=== PATIENT | male | born 1950 ===

== ENCOUNTER → 2022-11-23 12:47 | Outpatient (REF) | payer MEDICARE, SELFPAY | LOC: HO.CARD 12:47 | PROVIDERS: Visit Provider Nurse Practitioner Family | DX: Z13.89 Encounter for screening for other disorder (principal) | CPT/HCPCS: Q9957 ==

== ENCOUNTER 2022-11-23 13:36 | Emergency (ER) | payer MEDICARE, SELFPAY ==
[2022-11-23] VITALS (7 sets, daily range): BP systolic 136–148; BP diastolic 77–89; PULSE 65–77; RESP 12–18; TEMP 36.1–36.6; O2SAT 96–99; BMI 34.5
--- NOTE | 2022-11-23 13:42 | ED_ITS ---
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 Patient reports intermittent palpitations for months and was preparing for a cardiac stress test at [facility] today when he went into [facility] prior to starting the test. Cardiology then transferred him to the ED. Denies any specific triggers. Upon arrival to the ED, patient is in normal sinus rhythm. Denies chest pain, shortness of breath, nausea, vomiting,or diaphoresis. No k nown history of CAD. MD complaint: palpitations Duration: intermittent Related Data Allergies Allergy/AdvReac Type Severity Reaction Status Date / Time amoxicillin Allergy Itching Verified 11/23/22 13:42 Review of Systems Review of Systems: Yes all other systems are reviewed and are negative PMFSH Past Medical History Attestation statement: The following information was validated with the patient. Social History Social History Alcohol intake: current Alcohol intake frequency: holidays/special occasions only Smoked in Last 30 Days: No Use of substances other than those prescribed or required for medical reasons: No Advance Directives: No Advance Directives Information Provided: No Physical Exam Vital Signs: Vital Signs: Last Vital Signs Temp 98 F 11/23/22 13:42 Pulse 68 11/23/22 14:13 Resp 18 11/23/22 14:13 BP 137/89 11/23/22 14:13 Pulse Ox 98 11/23/22 14:13 O2 Del Method Room Air 11/23/22 14:13 BMI result Body Mass Index 34.5 Const: General: healthy appearing Nutritional Appearance: average body habitus Orientation/consciousness: oriented to person and patient oriented x3 Limitations: no limitations HEENT: Head: Yes normal to inspection Ears: external ears normal General nose exam: Normal external nose present Mouth: Normal oral and palatal mucosa present and oropharynx normal Throat: Yes posterior oropharynx normal Eyes: General: appearance normal, both eyes and all related structures Neck: Other: supple Neck: Yes normal visual inspection Chest: Chest palpation & inspection: normal inspection of the chest Resp: Auscultation: clear to auscultation bilaterally Cardio: Jugular venous distension: no JVD Rate: regular rate Rhythm: regular rhythm Heart sounds: S1 normal heart sound present and S2 normal heart sound present GI: Inspection: Yes normal to inspection Palpation (GI): Soft to palpation, nontender and No hepatosplenomegaly present Auscultation: normal bowel sounds : General: Yes no CVA tenderness Back/Spine/Pelvis: Back: no CVA tenderness Skin: General skin exam: no rashes or lesions noted Neuro: General: oriented to person and patient oriented x3 Cranial nerves: Yes CN's II-XII intact bilaterally Motor exam (neuro): 5/5 motor strength present throughout Extrem: General: Yes normal to inspection Psych: Appearance: grossly normal Course Reevaluation(s) Reevaluation #1: Patient presents from the stress lab with intermittent episodes of vtach. Controlled now with IV amiodarone. To be transfered to [facility] for cardiac catheterization. Time: 14:44 Reevaluation #2: I spent 40 minutes of critical care, with interventions, assessments, speaking to patient, consultants, and family. Time: 14:45 Reevaluation #3: Patient to be admitted hospitalist, telemetry at [facility]. Awaiting a bed. Time: 15:50 Medications Administered Discontinued Medications Generic Name Dose Route Start Last Admin Trade Name Freq PRN Reason Stop Dose Admin Amiodarone HCl 150 mg in 100 mls @ 600 mls/hr 11/23/22 13:42 11/23/22 14:18 Nexterone IV 11/23/22 13:51 Infused ONCE ONE Infusion Medical Decision Making Differential Diagnosis Differential Diagnoses: The differential diagnosis associated with the presen tation includes (ventricular tachycardia, CAD, electrolyte abnormalities) Admission/Observation Consideration of admission/observation: Escalation of care including admission/observation considered (From arrival, 71 yo male with palpitations found to have vtach at the stress lab was immediately considered for admission) Consult Healthcare Provider Management of the patient was discussed with: 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 Significant for no electrolyte abnormality, normal troponin. 11/23/22 14:08 11/23/22 14:08 Labs: Lab Results 11/23/22 11/23/22 11/23/22 Range/Units 14:08 14:08 14:08 WBC 4.2 L (4.8-10.8) X10*3/uL RBC 4.06 L (4.60-5.80) X10*6/uL Hgb 13.7 L (14.0-18.0) g/dl Hct 39.4 L (42.0-52.0) % MCV 97.0 (80.0-98.0) fL MCH 33.7 H (27.0-33.0) pg MCHC 34.8 (31.0-36.0) g/dl RDW 12.2 (11.0-16.0) % Plt Count 162 (160-400) X10*3/uL MPV 10.0 (9.4-12.4) fL Immature Gran % (Auto) 0.2 (0.0-0.4) % Neut % (Auto) 43.1 L (45-73) % Lymph % (Auto) 42.2 H (20-40) % Mercer % (Auto) 9.9 (2-11) % Eos % (Auto) 3.9 (0-4) % Baso % (Auto) 0.7 (0-2) % Lymph # (Auto) 1.8 (1.2-4.9) X10*3/uL Mercer # (Auto) 0.4 (0.1-1.2) X10*3/uL Eos # (Auto) 0.2 (0.0-0.4) X10*3/uL Baso # (Auto) 0.0 (0.0-0.2) X10*3/uL Abs Immat Gran (auto) 0.01 (0.00-0.03) X10*3/uL Absolute Neuts (auto) 1.8 L (2.0-8.3) x10*3/uL Absolute Nucleated RBC 0.000 (0.0-0.012) X10*3/uL Nucleated RBC % (auto) 0.0 (0.0-0.2) /100WBC Sodium 136 (135-145) mmol/L Potassium 4.1 (3.3-5.1) mmol/L Chloride 105 (96-108) mmol/L Carbon Dioxide 24 (22-29) mmol/L Anion Gap 11 L (12-20) BUN 14 (9-16) mg/dL Creatinine 1.05 (0.5-1.4) mg/dL Estim Creat Clear Calc 75.0 Estimated GFR > 60 Random Glucose 110 (60-115) mg/dL Calcium 9.4 (8.4-10.2) mg/dL Troponin I High Sens 4.7 (<3.5-35.0) ng/L COVID-19 (GABO) (Negative) COVID-19 Clin Com 11/23/22 Range/Units 14:50 WBC (4.8-10.8) X10*3/uL RBC (4.60-5.80) X10*6/uL Hgb (14.0-18.0) g/dl Hct (42.0-52.0) % MCV (80.0-98.0) fL MCH (27.0-33.0) pg MCHC (31.0-36.0) g/dl RDW (11.0-16.0) % Plt Count (160-400) X10*3/uL MPV (9.4-12.4) fL Immature Gran % (Auto) (0.0-0.4) % Neut % (Auto) (45-73) % Lymph % (Auto) (20-40) % Mercer % (Auto) (2-11) % Eos % (Auto) (0-4) % Baso % (Auto) (0-2) % Lymph # (Auto) (1.2-4.9) X10*3/uL Mercer # (Auto) (0.1-1.2) X10*3/uL Eos # (Auto) (0.0-0.4) X10*3/uL Baso # (Auto) (0.0-0.2) X10*3/uL Abs Immat Gran (auto) (0.00-0.03) X10*3/uL Absolute Neuts (auto) (2.0-8.3) x10*3/uL Absolute Nucleated RBC (0.0-0.012) X10*3/uL Nucleated RBC % (auto) (0.0-0.2) /100WBC Sodium (135-145) mmol/L Potassium (3.3-5.1) mmol/L Chloride (96-108) mmol/L Carbon Dioxide (22-29) mmol/L Anion Gap (12-20) BUN (9-16) mg/dL Creatinine (0.5-1.4) mg/dL Estim Creat Clear Calc Estimated GFR Random Glucose (60-115) mg/dL Calcium (8.4-10.2) mg/dL Troponin I High Sens (<3.5-35.0) ng/L COVID-19 (GABO) Negative (Negative) COVID-19 Clin Com See Note Independent Interpretation I performed an independent interpretation of an: EKG (Normal sinus rhythm, rate of 70, no ST or T wave changes.) Discharge Plan Discharge Clinical Impression: Ventricular tachycardia Patient Disposition: [facility] Acute Care Hospital Transfer Details: [facility] cardiology
--- NOTE | 2022-11-23 13:42 | ECG_ITS ---
Test Reason : palpitations Blood Pressure : / mmHG Vent. Rate : 068 BPM Atrial Rate : 068 BPM P-R Int : 148 ms QRS Dur : 104 ms QT Int : 412 ms P-R-T Axes : 047 067 -06 degrees QTc Int : 438 ms Normal sinus rhythm Possible Inferior infarct , age undetermined Abnormal ECG No previous ECGs available Referred By: Felice Pavon Electronically Signed By:CASEY MONTANO
[2022-11-23] MEDS: Amiodarone/Dextrose 150 MG/100 ML PLAST..BAG 600 MG IV (13:53)
--- NOTE | 2022-11-23 14:11 | PC.NURSE ---
Patient arrived from OR after having episodes of vtach prior to start of stress test. Brought to ER for eval. On monitor multiple episodes of Vtach, patient stating he has been having these episodes for years and can usually feel when it is happening. VSS, denies chest pain, sob, or headache. 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
[2022-11-23 14:12] LABS: MANUAL DIFF FLAG NO
[2022-11-23 14:18] LABS: Basophils Percent Auto 0.7 % (0-2); Eosinophils Absolute Auto 0.2 X10*3/uL (0.0-0.4); Eosinophils Percent Auto 3.9 % (0-4); Hematocrit 39.4 % (42.0-52.0); Hemoglobin 13.7 g/dl (14.0-18.0); Imm Gran Abs Auto 0.01 X10*3/uL (0.00-0.03); Imm Gran Pct Auto 0.2 % (0.0-0.4); Lymphocytes Absolute Auto 1.8 X10*3/uL (1.2-4.9); Lymphocytes Percent Auto 42.2 % (20-40); Mean Corpuscular HGB Conc 34.8 g/dl (31.0-36.0); Mean Corpuscular Hemoglobin 33.7 pg (27.0-33.0); Monocytes Absolute Auto 0.4 X10*3/uL (0.1-1.2); Monocytes Percent Auto 9.9 % (2-11); Neutrophils Absolute Auto 1.8 x10*3/uL (2.0-8.3); Neutrophils Percent Auto 43.1 % (45-73); Platelet Count 162 X10*3/uL (160-400); Red Blood Count 4.06 X10*6/uL (4.60-5.80); Red Cell Distribution Width 12.2 % (11.0-16.0); White Blood Count 4.2 X10*3/uL (4.8-10.8)
--- NOTE | 2022-11-23 14:18 | PC.NURSE ---
Amiodarone running per order- no new episodes of vtach since amiodarone has been administered.
[2022-11-23 14:34] LABS: Anion Gap 11 (12-20); Blood Urea Nitrogen 14 mg/dL (9-16); Calcium 9.4 mg/dL (8.4-10.2); Carbon Dioxide 24 mmol/L (22-29); Chloride 105 mmol/L (96-108); Estimated Glomerular Filt Rate > 60; Glucose Random 110 mg/dL (60-115); Potassium 4.1 mmol/L (3.3-5.1); Sodium 136 mmol/L (135-145)
[2022-11-23 14:44] LABS: Troponin-I High Sensitivity 4.7 ng/L (<3.5-35.0)
[2022-11-23 15:06] LABS: COVID-19 Test Negative (Negative); IDNOW Serial# BCCEAD1C
--- NOTE | 2022-11-23 16:25 | PC.NURSE ---
Continues with multiple episodes of vtach, provider aware, awaiting bed assignment at [facility]
--- NOTE | 2022-11-23 18:27 | PC.NURSE ---
PO amiodarone ordered by provider. Provider asking for dose to be held at this time until provider is able to speak to cardiology at [facility].
[2022-11-23] MEDS: Amiodarone HCL 900 MG in 0.9 % Sodium Chloride 500 ML 34.53 MG IVCONT (19:03)
--- NOTE | 2022-11-23 19:23 | PC.NURSE ---
Assumed care for pt. Pt aox4. Breaths are even, regular and unlabored. Reports reports mild headache. Denies cp or palpitaions at this time. Multiple 20sec run of v-tach noted on the monitor with HR 146. Amiodarone drip ordered and started at 1mg/min. Pt tolerating well. No v-tach noted on the monitor after drip started. NSR on monitor with HR 70 bpm. Amiodarone PO held at this time per Dr. Underwood. Shock pads on pt. Pending awaiting transport to [facility]. Pt aware of plan of care.
[2022-11-23] MEDS: Acetaminophen 325 MG TABLET 650 MG PO (19:30)
[2022-11-23 19:38] LABS: Troponin-I High Sensitivity < 2.7 ng/L (<3.5-35.0)
--- NOTE | 2022-11-23 20:17 | MHC.EDTECH ---
This /[facility] called [facility] at 2016 for an update on a bed assignment spoke with Ninoska she stated they will not know when they will have a bed available it may be tomorrow morning. was made aware
[2022-11-23] MEDS: Metoprolol Tartrate 50 MG TABLET PO (21:08)
--- NOTE | 2022-11-23 21:08 | PC.NURSE ---
Metoprolol 50mg administered po as ordered BID. Pt tolerated well.
--- NOTE | 2022-11-23 21:15 | PC.NURSE ---
Run of v-tach noted at 2029. Pt aox4. Reports no pain or chest discomfort. aware.
--- NOTE | 2022-11-23 21:26 | PHA.MEDREC ---
Pharmacy Consult ? Medication Reconciliation Pharmacy has completed the medication reconciliation. Patient reported all medications. Unsure if he took his medications this morning. Katie Harding, FatumaD
--- NOTE | 2022-11-23 22:21 | PC.NURSE ---
Pt aox4 resting at the bedside in no apparent distress. Breaths are even, regular, and unlabored. NSR on monitor with HR ranging between 55-70 bpm. Reports no pain, palpitations, or discomfort. Amiodarone drip running at 1mg/min. [place] [facility] [place] Pt aware of plan.
[2022-11-24] VITALS (7 sets, daily range): BP systolic 110–139; BP diastolic 68–85; PULSE 53–63; RESP 12–18; TEMP 36.6–36.7; O2SAT 95–98
--- NOTE | 2022-11-24 01:07 | PC.NURSE ---
Pt aox4 resting at the bedside in no apparent distress. Breaths are even regular and unlabored with equal chest rises. Sinus sharmila on monitor with hr of 53. Denies chest pain or palpitations. Amiodarone drip decreased to 0.5mg/min per protocol. MD aware. Pt aware of plan of care.
--- NOTE | 2022-11-24 04:05 | PC.NURSE ---
Pt sleeping at the bedside. No apparent distress noted. Breaths even regular and unlabored with equal chest rises. Sinus sharmila on the monitor with hr 50. Amiodorone drip running at 0.5mg/min as ordered. Pending transport to [facility] telemetry. Will continue to monitor.
--- NOTE | 2022-11-24 06:29 | MHC.EDTECH ---
Call out to [facility] transfer line @[phone], spoke to Madisyn for an update on bed assignment. I was informed that the patient still has no bed assignment and are waiting for discharges in the morning
--- NOTE | 2022-11-24 07:59 | PC.NURSE ---
pt is alert and oriented, skin pwd, respirations even unlabored, ls clear, pt denies any pain at this time, pt is currently running on amnio 0.5mg/min, ns on the monitor and vs stable pt continuos on waiting for a bed assignment at [facility]
--- NOTE | 2022-11-24 09:11 | PC.NURSE ---
called [facility] for report but awaiting for a call back
--- NOTE | 2022-11-24 09:17 | MHC.EDTECH ---
AT 8:34AM, [facility] CALLED WITH ROOM ASSIGNMENT AND ACCEPTING DOCTOR. [facility] NURSE CALLBACK NUMBER IS [phone], ACCEPTED BY .
--- NOTE | 2022-11-24 09:41 | PC.NURSE ---
report given to [facility], Suzi gaytan
== END 2022-11-24 09:43 | disposition short-term general hospital (02) ==
PROVIDERS: Emergency Medicine; Emergency Medicine Emergency Medical Services; Emergency Provider Internal Medicine
DX: I47.20 Ventricular tachycardia, unspecified (principal); Z20.822 Contact with and (suspected) exposure to COVID-19
CPT/HCPCS: 36415; 80048; 84484; 85025; 87635; 93005; 96365; 96366; 96367; 99285; J0282; J0283; Q9957